=== PATIENT | female | born 2000 | race Caucasian/White ===

== ENCOUNTER 2022-05-15 14:44 | Emergency (ER) | payer OTHER, SELFPAY ==
[2022-05-15 14:54] VITALS: BP 131/74; PULSE 78; RESP 20; TEMP 37.2; O2SAT 100
--- NOTE | 2022-05-15 15:04 | ED.URI ---
HPI - URI/Sore Throat General Chief Complaint: Upper Respiratory Infection Stated Complaint: Congestion Source: patient and RN notes reviewed History of Present Illness HPI Narrative: 21-year-old male presents to urgent care with complaints of worsening congestion for the last 3 days. Patient states she has been congested on and off ever since she had COVID a couple years ago. Patient states last use 3 days she is unable to get out of her nose. Patient reports fullness and bilateral ears. Denies any fevers, chills, vomiting, chest pain, ear pain, or sore throat. Patient has taken DayQuil today with some relief. Some parts of this dictation were generated by voice recognition software and may contain typographical and/or grammatical inaccuracies. Related Data Allergies Allergy/AdvReac Type Severity Reaction Status Date / Time No Known Allergies Allergy Verified 05/15/22 15:01 Review of Systems Review of Systems: Pertinent positives and pertinent negatives per HPI. PMFSH Comments At the time of my signature, I reviewed and agree with the nursing past medical, surgical, social, and family history. There is no relevant family history pertinent to the patient complaint. Exam Narrative: GENERAL: This is a well-nourished, well-developed patient, in no apparent distress. HEAD: normocephalic, atraumatic. EYES: Sclera clear/white. Vision is grossly intact. EARS: External ears normal, auditory canals clear and without drainage, left TM erythemic. Hearing grossly intact. NOSE: Congested THROAT: Mucous membranes moist, posterior pharynx clear. NECK: Neck supple, non-tender without lymphadenopathy, masses or thyromegaly. CARDIOVASCULAR: Regular rate and rhythm without murmurs, gallops, or rubs. RESPIRATORY: Clear to auscultation. Breath sounds equal bilaterally. No wheezes, rales, or rhonchi. GASTROINTESTINAL: Abdomen soft, non-tender, nondistended. Bowel sounds are active. No hepato-splenomegaly, or palpable masses. No guarding. SKIN: warm, intact with no suspicious lesions or rash, good texture and turgor. NEURO: awake, alert, and oriented to person, place and time. There were no obvious focal neurologic abnormalities. BACK: Nontender without deformity or crepitance. No flank tenderness. Course Course Level of Care: Express Care Visit Vital Signs Vital signs: Vital Signs Temperature 98.9 F 05/15/22 14:54 Pulse Rate 78 05/15/22 14:54 Respiratory Rate 20 05/15/22 14:54 Blood Pressure 131/74 05/15/22 14:54 Pulse Oximetry 100 05/15/22 14:54 Oxygen Delivery Room Air 05/15/22 14:54 Temperature 98.9 F 05/15/22 14:54 Pulse Rate 78 05/15/22 14:54 Respiratory Rate 20 05/15/22 14:54 Blood Pressure 131/74 05/15/22 14:54 Pulse Oximetry 100 05/15/22 14:54 Oxygen Delivery Room Air 05/15/22 14:54 Reviewed MDM - URI/Sore Throat MDM Narrative Medical decision making narrative: Go to the ER for any new or worsening symptoms. Avoid smoking/second-hand smoke. Continue to take Tylenol or Motrin for pain. Increase your Vitamin C intake. Use a humidifier or vaporizer at night. Take Medications as prescribed. Drink plenty of water. 8-10 glasses per day. Use flonase 2 times per day for 5 days then as needed Take mucinex 2 times per day and be sure to take with 8oz of water. Follow up with Primary provider if not getting better. Differential Diagnosis Differential diagnosis: Likely upper respiratory infection, sinusitis and viral infection Critical Care Time Critical Care Time Critical Care Time: No Discharge Plan Discharge Clinical Impression: Sinusitis Qualifiers: Sinusitis location: unspecified location Chronicity: unspecified Qualified Code(s): J32.9 - Chronic sinusitis, unspecified Patient Disposition: Home, Self-Care Condition: Stable Instructions: Antibiotic Form, Sinusitis (ED) Additional Instructions: Go to the ER for any new or worsening symptoms. Avoid smoking/
== END 2022-05-15 15:11 | disposition home or self-care (01) ==
PROVIDERS: Emergency Provider Nurse Practitioner Family
DX: J32.9 Chronic sinusitis, unspecified (principal)
CPT/HCPCS: 99213; G0463